=== PATIENT | male | born 1985 | race Hispanic/Latino ===

== ENCOUNTER 2017-01-29 19:23 | Emergency (ER) | payer SELFPAY | END 2017-01-29 20:10 | disposition left against medical advice (07) | LOC: ERS 19:23 | DX: Z53.21 Procedure and treatment not carried out due to patient leaving prior to being seen by health care provider (principal) ==

== ENCOUNTER 2019-03-15 17:16 | Emergency (ER) | payer SELFPAY ==
[2019-03-15] MEDS ORDERED: Ketorolac Tromethamine 60 MG/2 ML VIAL ONE (18:06)
[2019-03-15] MEDS ORDERED: Acetaminophen 500 MG TAB ONE (18:12)
== END 2019-03-15 18:15 | disposition home or self-care (01) ==
LOC: ERS 17:16
DX: K02.9 Dental caries, unspecified (principal); I10 Essential (primary) hypertension; F41.9 Anxiety disorder, unspecified
CPT/HCPCS: 96372; 99282; J1885

== ENCOUNTER 2020-03-23 09:13 | Emergency (ER) | payer SELFPAY ==
[2020-03-23 22:01] LABS: SARS-CoV-2 MS2 Positive; SARS-CoV-2 N Gene Positive; SARS-CoV-2 S Gene Positive; SARS-CoV-2 by NAA DETECTED (NotDetected); SARS-CoV-2 orf1ab Positive
== END 2020-03-23 09:55 | disposition home or self-care (01) ==
LOC: ERS 09:13
DX: U07.1 COVID-19 (principal); F41.9 Anxiety disorder, unspecified
CPT/HCPCS: 87635; 87804; 99283; U0003

== ENCOUNTER 2020-07-14 09:39 | Emergency (ER) | payer SELFPAY ==
[2020-07-14 22:54] LABS: SARS-CoV-2 PCR by NAA DETECTED (NotDetected)
== END 2020-07-14 12:00 | disposition home or self-care (01) ==
LOC: ERS 09:39
DX: U07.1 COVID-19 (principal)
CPT/HCPCS: 87635; 99283; U0003; U0005

== ENCOUNTER 2023-09-13 20:29 | Emergency (ER) | payer BC, SELFPAY | END 2023-09-13 23:04 | disposition home or self-care (01) | LOC: ERS 20:29 | DX: R04.2 Hemoptysis (principal); F17.200 Nicotine dependence, unspecified, uncomplicated; Y92.69 Other specified industrial and construction area as the place of occurrence of the external cause; Z55.0 Illiteracy and low-level literacy | CPT/HCPCS: 99283 ==

== ENCOUNTER 2023-11-14 06:59 | Emergency (ER) | payer SELFPAY | END 2023-11-14 07:43 | disposition home or self-care (01) | LOC: ERS 06:59 | DX: R04.0 Epistaxis (principal); F17.200 Nicotine dependence, unspecified, uncomplicated; Z55.6 Problems related to health literacy; Z75.3 Unavailability and inaccessibility of health-care facilities | CPT/HCPCS: 99282 ==